=== PATIENT | male | born 1955 | race Caucasian/White ===

== ENCOUNTER 2018-01-05 08:33 | Inpatient (IN) | payer MEDICAID, OTHER ==
[~2018-01-05] VITALS: Ht 188 cm; Wt 101.7 kg
[2018-01-05 09:39] LABS: Basophils # (auto) 0 uL; Basophils % (auto) 0.6 % (0.0-2.0); Eosinophils # (auto) 0.1 uL; Lymphocytes # (auto) 0.8 uL; Monocytes # (auto) 0.5 uL
[2018-01-05 09:40] LABS: Eosinophils % (auto) 1.6 % (0.0-7.0); Hematocrit 31.3 % (41.0-53.0); Hemoglobin 10.4 g/dL (13.5-17.5); Lymphocytes % (auto) 14.2 % (10.0-50.0); Mean Corpuscular Hemoglobin 34.4 pg (28.0-32.0); Mean Corpuscular Hgb Conc. 33.4 g/dL (32.0-36.0); Mean Corpuscular Volume 103.2 fL (80.0-100.0); Monocytes % (auto) 8.9 % (0.0-12.0); Neutrophils # (auto) 4.3 uL; Neutrophils % (auto) 74.7 % (37.0-80.0); Platelet Count (auto) 112 10^3/uL (140-450); Red Blood Cells 3.03 10^6/uL (4.5-5.90); Red Cell Distribution Width 13.7 % (11.8-14.3); White Blood Cell 5.7 10^3/uL (4.4-10.8)
[2018-01-05 10:07] LABS: Albumin 3.7 g/dL (3.4-5.0); Calcium 8.6 mg/dL (8.5-10.1)
[2018-01-05 10:15] LABS: BUN/Creatinine Ratio 7.8; Bilirubin, Total 0.6 mg/dL (0.2-1.0); Total Protein 7.3 g/dL (6.4-8.2)
[2018-01-05 10:17] LABS: Potassium 7.3 mmol/L (3.5-5.1)
[2018-01-05] MEDS ORDERED: ALBUTEROL SULF 2.5 MG/0.5ML(0.5%) NEB SOLN NEB STA (10:35)
[2018-01-05] MEDS ORDERED: CALCIUM GLUC 4.65meq/50ml D5AE 50 ML IV ONE (10:45)
[2018-01-05] MEDS ORDERED: SODIUM POLYSTYRENE SULF 15GM/60ML SUSP PO ONE (10:45)
[2018-01-05] MEDS ORDERED: DEXTROSE (50%) 50ML SYRG IV ONE ×2 (10:45→15:30)
[2018-01-05] MEDS ORDERED: SODIUM BICARBONATE 8.4% INJ 50ML SYRINGE IV ONE (10:45)
[2018-01-05] MEDS ORDERED: FUROSEMIDE 20 MG/2 ML VIAL IV ONE (10:45)
[2018-01-05] MEDS ORDERED: InsuLIN REG 1unit/0.01ml Soln (100units/ml) IV ONE (10:45)
[2018-01-05] MEDS ORDERED: SODIUM CHL 0.9% 1000 ML BAG XX ONE (13:30)
[2018-01-05] MEDS ORDERED: DIAZEPAM 5 MG TAB PO PRN (13:30)
[2018-01-05] MEDS ORDERED: EPOETIN ALFA 10,000 UNIT/1 ML VIAL IV ONE (13:30)
[2018-01-05] MEDS ORDERED: MORPHINE SULFATE 8mg/ml INJ SDV IV PRN (13:45)
[2018-01-05] MEDS ORDERED: ACETAMINOPHEN 325 MG TAB PO PRN (13:45)
[2018-01-05] MEDS ORDERED: NITROGLYCERIN 0.4 MG SL TAB SL PRN (13:45)
[2018-01-05] MEDS ORDERED: TEMAZEPAM 15 MG CAP PO PRN (13:45)
[2018-01-05] MEDS ORDERED: CARVEDILOL 12.5 MG TAB PO ONE (14:00)
[2018-01-05] MEDS ORDERED: CLOPIDOGREL BISULFATE 75 MG TAB PO ONE (14:00)
[2018-01-05] MEDS: SODIUM CHLOR 0.9% PF (SALINE LOCK) 10ML VIAL/SYR IV SCH ×2 (14:00→22:00)
[2018-01-05 14:52] LABS: Calcium 8.7 mg/dL (8.5-10.1)
[2018-01-05 15:02] LABS: BUN/Creatinine Ratio 7.8
[2018-01-05 15:13] LABS: Potassium 7.5 mmol/L (3.5-5.1)
[2018-01-05] MEDS ORDERED: DEXTROSE 50% SYRINGE 50 ML IV ONE (15:20)
[2018-01-05] MEDS: SEVELAMER 800 MG TAB PO SCH (18:12)
[2018-01-05 18:43] VITALS: BP 105/68
[2018-01-05 21:12] VITALS: BP 99/63
[2018-01-05 22:00] VITALS: BP 99/69
[2018-01-05] MEDS ORDERED: oxyCODONE ER 10 MG TAB PO SCH (22:00)
[2018-01-05] MEDS ORDERED: FAMOTIDINE 20 MG TAB PO SCH (22:00)
[2018-01-06] MEDS: CARVEDILOL 12.5 MG TAB PO SCH ×3 (00:30→21:20)
[2018-01-06] MEDS: DOXAZOSIN MESYL 2 MG TAB PO SCH ×2 (00:30→21:22)
[2018-01-06] MEDS: PRAVASTATIN SODIUM 20 MG TAB PO SCH ×2 (00:43→21:23)
[2018-01-06] MEDS ORDERED: MORPHINE SULF 15mg ER tab PO ONE (01:15)
[2018-01-06] MEDS: ONDANSETRON HCL 4 MG/2 ML VIAL IV PRN (02:28)
[2018-01-06 05:11] VITALS: BP 90/58
[2018-01-06] MEDS: SODIUM CHLOR 0.9% PF (SALINE LOCK) 10ML VIAL/SYR IV SCH ×3 (05:51→21:20)
[2018-01-06 06:38] LABS: Basophils # (auto) 0 uL; Basophils % (auto) 0.6 % (0.0-2.0); Eosinophils # (auto) 0 uL; Lymphocytes # (auto) 0.8 uL; Monocytes # (auto) 0.5 uL; Neutrophils # (auto) 2.1 uL; Red Cell Distribution Width 13.6 % (11.8-14.3); White Blood Cell 3.4 10^3/uL (4.4-10.8)
[2018-01-06 06:42] LABS: Eosinophils % (auto) 0.7 % (0.0-7.0); Hemoglobin 9.3 g/dL (13.5-17.5); Lymphocytes % (auto) 22.9 % (10.0-50.0); Mean Corpuscular Hemoglobin 35.3 pg (28.0-32.0); Mean Corpuscular Hgb Conc. 34.4 g/dL (32.0-36.0); Mean Corpuscular Volume 102.6 fL (80.0-100.0); Monocytes % (auto) 15.3 % (0.0-12.0); Neutrophils % (auto) 60.5 % (37.0-80.0); Nucleated Red Blood Cells % 0.3 %; Platelet Count (auto) 90 10^3/uL (140-450); Red Blood Cells 2.64 10^6/uL (4.5-5.90)
[2018-01-06 06:58] LABS: Potassium 5.4 mmol/L (3.5-5.1)
[2018-01-06 07:12] LABS: Albumin 3.1 g/dL (3.4-5.0); BUN/Creatinine Ratio 6.1; Bilirubin, Total 0.9 mg/dL (0.2-1.0); Calcium 8.5 mg/dL (8.5-10.1); Total Protein 6.3 g/dL (6.4-8.2)
[2018-01-06] MEDS: SEVELAMER 800 MG TAB PO SCH ×3 (07:59→18:12)
[2018-01-06 09:00] VITALS: BP 107/67
[2018-01-06] MEDS: B-COMPLEX W/ C & FOLIC ACID(NEPHROVITE TAB) PO SCH (09:19)
[2018-01-06] MEDS: MULTIPLE VITAMIN TAB PO SCH (09:19)
[2018-01-06] MEDS: CLOPIDOGREL BISULFATE 75 MG TAB PO SCH (09:19)
[2018-01-06] MEDS: PANTOPRAZOLE 40 MG TAB PO SCH (09:20)
[2018-01-06] MEDS: MORPHINE SULF 15mg ER tab PO SCH ×2 (09:21→21:22)
[2018-01-06] MEDS: CINACALCET HYDROCHLORIDE 30 MG TAB PO SCH (09:28)
[2018-01-06] MEDS ORDERED: PATIENTS OWN MEDICATION PO SCH (10:00)
[2018-01-06] MEDS ORDERED: CLOPIDOGREL BISULFATE 75 MG TAB PO SCH (10:00)
[2018-01-06 13:09] VITALS: BP 95/61
[2018-01-06] MEDS ORDERED: SODIUM CHL 0.9% 1000 ML BAG XX ONE (13:45)
[2018-01-06 17:00] VITALS: BP 109/69
[2018-01-06] MEDS: BOOST PLUS 8 ounce PO SCH (18:13)
[2018-01-06 19:48] VITALS: BP 101/69
[2018-01-06 22:00] VITALS: BP 91/55
[2018-01-07] MEDS: ONDANSETRON HCL 4 MG/2 ML VIAL IV PRN ×3 (03:00→22:23)
[2018-01-07] MEDS: SODIUM CHLOR 0.9% PF (SALINE LOCK) 10ML VIAL/SYR IV SCH ×3 (05:23→22:43)
[2018-01-07 05:25] VITALS: BP 104/67
[2018-01-07 06:00] LABS: Basophils # (auto) 0 uL; Eosinophils # (auto) 0.1 uL; Eosinophils % (auto) 1.8 % (0.0-7.0); Hemoglobin 11.1 g/dL (13.5-17.5); Lymphocytes # (auto) 0.7 uL; Mean Corpuscular Volume 104.3 fL (80.0-100.0); Monocytes # (auto) 0.6 uL; Neutrophils # (auto) 3.2 uL
[2018-01-07 06:05] LABS: Basophils % (auto) 0.6 % (0.0-2.0); Hematocrit 33.3 % (41.0-53.0); Lymphocytes % (auto) 15.1 % (10.0-50.0); Mean Corpuscular Hemoglobin 34.7 pg (28.0-32.0); Mean Corpuscular Hgb Conc. 33.3 g/dL (32.0-36.0); Monocytes % (auto) 13.4 % (0.0-12.0); Neutrophils % (auto) 69.1 % (37.0-80.0); Nucleated Red Blood Cells % 0.1 %; Platelet Count (auto) 95 10^3/uL (140-450); White Blood Cell 4.7 10^3/uL (4.4-10.8)
[2018-01-07 06:23] LABS: Potassium 4.4 mmol/L (3.5-5.1)
[2018-01-07 06:35] LABS: BUN/Creatinine Ratio 4.2; Calcium 8.9 mg/dL (8.5-10.1)
[2018-01-07 08:00] VITALS: BP 111/57
[2018-01-07] MEDS: SEVELAMER 800 MG TAB PO SCH ×3 (08:17→18:31)
[2018-01-07 09:00] VITALS: BP 111/57
[2018-01-07] MEDS: PANTOPRAZOLE 40 MG TAB PO SCH (10:16)
[2018-01-07] MEDS: CLOPIDOGREL BISULFATE 75 MG TAB PO SCH (10:16)
[2018-01-07] MEDS: MULTIPLE VITAMIN TAB PO SCH (10:16)
[2018-01-07] MEDS: B-COMPLEX W/ C & FOLIC ACID(NEPHROVITE TAB) PO SCH (10:16)
[2018-01-07] MEDS: BOOST PLUS 8 ounce PO SCH ×3 (10:17→18:31)
[2018-01-07] MEDS: CARVEDILOL 12.5 MG TAB PO SCH ×2 (10:17→22:44)
[2018-01-07] MEDS: MORPHINE SULF 15mg ER tab PO SCH ×2 (10:18→22:44)
[2018-01-07] MEDS: CINACALCET HYDROCHLORIDE 30 MG TAB PO SCH (11:26)
[2018-01-07 13:00] VITALS: BP 117/73
[2018-01-07 14:17] LABS: Hepatitis A Ab IgM Negative
[2018-01-07 14:20] LABS: Hepatitis B Core IgM Positive; Hepatitis B Surface Antigen Negative (Negative)
[2018-01-07 14:23] LABS: Hepatitis C Antibody Negative (Negative)
[2018-01-07] MEDS ORDERED: MORP15TA PO (15:27)
[2018-01-07] MEDS ORDERED: CARV25TA PO (15:27)
[2018-01-07] MEDS ORDERED: CLOP75TA28 PO (15:27)
[2018-01-07] MEDS ORDERED: CINA30TA2 PO (15:27)
[2018-01-07] MEDS ORDERED: DOXA2TAB PO (15:32)
[2018-01-07] MEDS ORDERED: DIAZ-104 PO (15:32)
[2018-01-07] MEDS ORDERED: ACE3T PO (15:32)
[2018-01-07] MEDS ORDERED: PRAV20TA3 PO (15:32)
[2018-01-07] MEDS ORDERED: SEVE800T PO (15:32)
[2018-01-07 17:00] VITALS: BP 105/64
[2018-01-07 22:25] VITALS: BP 114/64
[2018-01-07] MEDS: DOXAZOSIN MESYL 2 MG TAB PO SCH (22:43)
[2018-01-07] MEDS: PRAVASTATIN SODIUM 20 MG TAB PO SCH (22:45)
[2018-01-08] MEDS: SODIUM CHLOR 0.9% PF (SALINE LOCK) 10ML VIAL/SYR IV SCH ×3 (05:48→22:33)
[2018-01-08 06:01] LABS: Basophils # (auto) 0 uL; Eosinophils # (auto) 0.2 uL; Hemoglobin 9.9 g/dL (13.5-17.5); Lymphocytes # (auto) 1.3 uL; Monocytes # (auto) 0.5 uL; Red Blood Cells 2.83 10^6/uL (4.5-5.90)
[2018-01-08 06:03] LABS: Basophils % (auto) 0.5 % (0.0-2.0); Eosinophils % (auto) 4.2 % (0.0-7.0); Hematocrit 29.5 % (41.0-53.0); Lymphocytes % (auto) 29.5 % (10.0-50.0); Mean Corpuscular Hemoglobin 34.8 pg (28.0-32.0); Mean Corpuscular Hgb Conc. 33.5 g/dL (32.0-36.0); Mean Corpuscular Volume 104.1 fL (80.0-100.0); Monocytes % (auto) 11.4 % (0.0-12.0); Neutrophils # (auto) 2.5 uL; Neutrophils % (auto) 54.4 % (37.0-80.0); Nucleated Red Blood Cells % 0.1 %; Platelet Count (auto) 95 10^3/uL (140-450); Red Cell Distribution Width 13.6 % (11.8-14.3); White Blood Cell 4.6 10^3/uL (4.4-10.8)
[2018-01-08 06:16] LABS: Calcium 8.5 mg/dL (8.5-10.1)
[2018-01-08 06:26] LABS: BUN/Creatinine Ratio 4.2
[2018-01-08] MEDS: ONDANSETRON HCL 4 MG/2 ML VIAL IV PRN (07:24)
[2018-01-08] MEDS: SEVELAMER 800 MG TAB PO SCH ×3 (08:00→18:40)
[2018-01-08] MEDS ORDERED: EPOETIN ALFA 10,000 UNIT/1 ML VIAL IV ONE (08:15)
[2018-01-08 09:00] VITALS: BP 120/59
[2018-01-08] MEDS: CARVEDILOL 12.5 MG TAB PO SCH ×2 (10:00→22:00)
[2018-01-08 11:55] VITALS: BP 98/67
[2018-01-08 13:00] VITALS: BP 98/67
[2018-01-08] MEDS: BOOST PLUS 8 ounce PO SCH ×3 (13:40→18:40)
[2018-01-08] MEDS: MULTIPLE VITAMIN TAB PO SCH (13:40)
[2018-01-08] MEDS: B-COMPLEX W/ C & FOLIC ACID(NEPHROVITE TAB) PO SCH (13:41)
[2018-01-08] MEDS: MORPHINE SULF 15mg ER tab PO SCH ×2 (13:42→22:34)
[2018-01-08] MEDS: CLOPIDOGREL BISULFATE 75 MG TAB PO SCH (13:42)
[2018-01-08] MEDS: CINACALCET HYDROCHLORIDE 30 MG TAB PO SCH (13:42)
[2018-01-08] MEDS: PANTOPRAZOLE 40 MG TAB PO SCH (14:40)
[2018-01-08 17:00] VITALS: BP 99/67
[2018-01-08 22:00] VITALS: BP 98/64
[2018-01-08] MEDS: DOXAZOSIN MESYL 2 MG TAB PO SCH (22:00)
[2018-01-08] MEDS: PRAVASTATIN SODIUM 20 MG TAB PO SCH (22:34)
[2018-01-09 05:00] VITALS: BP 103/68
[2018-01-09] MEDS: SODIUM CHLOR 0.9% PF (SALINE LOCK) 10ML VIAL/SYR IV SCH ×3 (06:06→22:42)
[2018-01-09] MEDS: BOOST PLUS 8 ounce PO SCH ×2 (08:17→13:38)
[2018-01-09] MEDS: ONDANSETRON HCL 4 MG/2 ML VIAL IV PRN ×3 (08:17→22:52)
[2018-01-09] MEDS: SEVELAMER 800 MG TAB PO SCH ×3 (08:17→18:02)
[2018-01-09 08:30] VITALS: BP 94/64
[2018-01-09] MEDS: MULTIPLE VITAMIN TAB PO SCH (09:49)
[2018-01-09] MEDS: MORPHINE SULF 15mg ER tab PO SCH ×2 (09:49→22:49)
[2018-01-09] MEDS: CARVEDILOL 12.5 MG TAB PO SCH (09:49)
[2018-01-09] MEDS: B-COMPLEX W/ C & FOLIC ACID(NEPHROVITE TAB) PO SCH (09:49)
[2018-01-09] MEDS: CLOPIDOGREL BISULFATE 75 MG TAB PO SCH (09:50)
[2018-01-09] MEDS: CINACALCET HYDROCHLORIDE 30 MG TAB PO SCH (09:50)
[2018-01-09] MEDS: PANTOPRAZOLE 40 MG TAB PO SCH (09:50)
[2018-01-09 11:06] LABS: Phosphorus 3.2 mg/dL (2.5-4.90); Uric Acid 3.5 mg/dL (3.5-7.2)
[2018-01-09 12:30] VITALS: BP 105/68
[2018-01-09 16:49] VITALS: BP 107/63
[2018-01-09 22:00] VITALS: BP 93/65
[2018-01-09] MEDS: CARVEDILOL 3.125 MG TAB PO SCH (22:43)
[2018-01-09] MEDS: PRAVASTATIN SODIUM 20 MG TAB PO SCH (22:44)
[2018-01-10] MEDS: SODIUM CHLOR 0.9% PF (SALINE LOCK) 10ML VIAL/SYR IV SCH ×3 (05:45→21:42)
[2018-01-10 06:29] VITALS: BP 112/70
[2018-01-10 07:30] LABS: Albumin 3.1 g/dL (3.4-5.0); BUN/Creatinine Ratio 4.2; Calcium 8.8 mg/dL (8.5-10.1); Potassium 4.6 mmol/L (3.5-5.1)
[2018-01-10] MEDS: SEVELAMER 800 MG TAB PO SCH ×3 (07:32→17:40)
[2018-01-10] MEDS: ONDANSETRON HCL 4 MG/2 ML VIAL IV PRN ×4 (07:32→21:43)
[2018-01-10 07:34] LABS: Bilirubin, Total 0.5 mg/dL (0.2-1.0); Total Protein 6.8 g/dL (6.4-8.2)
[2018-01-10 09:01] VITALS: BP 102/62
[2018-01-10] MEDS: CARVEDILOL 3.125 MG TAB PO SCH ×2 (09:54→21:42)
[2018-01-10] MEDS: MORPHINE SULF 15mg ER tab PO SCH ×2 (09:54→21:43)
[2018-01-10] MEDS: B-COMPLEX W/ C & FOLIC ACID(NEPHROVITE TAB) PO SCH ×2 (09:54→11:00)
[2018-01-10] MEDS: MULTIPLE VITAMIN TAB PO SCH (09:54)
[2018-01-10] MEDS: PANTOPRAZOLE 40 MG TAB PO SCH (09:55)
[2018-01-10] MEDS: CINACALCET HYDROCHLORIDE 30 MG TAB PO SCH (09:55)
[2018-01-10] MEDS: CLOPIDOGREL BISULFATE 75 MG TAB PO SCH (09:55)
[2018-01-10] MEDS ORDERED: SODIUM CHL 0.9% 1000 ML BAG XX ONE (11:00)
[2018-01-10] MEDS ORDERED: EPOETIN ALFA 10,000 UNIT/1 ML VIAL IV ONE (11:00)
[2018-01-10 12:30] VITALS: BP 92/62
[2018-01-10 17:17] VITALS: BP 109/71
[2018-01-10 21:33] VITALS: BP 99/68
[2018-01-10] MEDS: PRAVASTATIN SODIUM 20 MG TAB PO SCH (21:43)
[2018-01-11] MEDS: SODIUM CHLOR 0.9% PF (SALINE LOCK) 10ML VIAL/SYR IV SCH ×3 (05:27→22:24)
[2018-01-11 05:39] VITALS: BP 105/65
[2018-01-11] MEDS: SEVELAMER 800 MG TAB PO SCH ×3 (08:22→18:32)
[2018-01-11] MEDS: ONDANSETRON HCL 4 MG/2 ML VIAL IV PRN ×2 (08:22→22:25)
[2018-01-11 08:30] VITALS: BP 104/81
[2018-01-11] MEDS: MORPHINE SULF 15mg ER tab PO SCH ×2 (10:11→22:25)
[2018-01-11 13:00] VITALS: BP 109/73
[2018-01-11] MEDS: CLOPIDOGREL BISULFATE 75 MG TAB PO SCH (15:28)
[2018-01-11] MEDS: B-COMPLEX W/ C & FOLIC ACID(NEPHROVITE TAB) PO SCH (15:28)
[2018-01-11] MEDS: PANTOPRAZOLE 40 MG TAB PO SCH (15:28)
[2018-01-11] MEDS: MULTIPLE VITAMIN TAB PO SCH (16:02)
[2018-01-11] MEDS: CINACALCET HYDROCHLORIDE 30 MG TAB PO SCH (16:02)
[2018-01-11 16:45] VITALS: BP 106/76
[2018-01-11 22:00] VITALS: BP 101/69
[2018-01-11] MEDS ORDERED: CARVEDILOL 3.125 MG TAB PO SCH (22:00)
[2018-01-11] MEDS: PRAVASTATIN SODIUM 20 MG TAB PO SCH (22:25)
[2018-01-12] MEDS: SODIUM CHLOR 0.9% PF (SALINE LOCK) 10ML VIAL/SYR IV SCH ×3 (04:56→22:20)
[2018-01-12 05:00] VITALS: BP 108/63
[2018-01-12] MEDS: ONDANSETRON HCL 4 MG/2 ML VIAL IV PRN ×4 (06:31→21:15)
[2018-01-12 07:11] LABS: Basophils # (auto) 0 uL; Eosinophils # (auto) 0.2 uL; Lymphocytes # (auto) 1.4 uL; Monocytes # (auto) 0.7 uL; Nucleated Red Blood Cells % 0.1 %; Red Cell Distribution Width 13.7 % (11.8-14.3); White Blood Cell 6.4 10^3/uL (4.4-10.8)
[2018-01-12 07:14] LABS: Basophils % (auto) 0.6 % (0.0-2.0); Eosinophils % (auto) 3.3 % (0.0-7.0); Hematocrit 30.3 % (41.0-53.0); Hemoglobin 10.1 g/dL (13.5-17.5); Lymphocytes % (auto) 21.9 % (10.0-50.0); Mean Corpuscular Hemoglobin 34.4 pg (28.0-32.0); Mean Corpuscular Hgb Conc. 33.4 g/dL (32.0-36.0); Mean Corpuscular Volume 102.9 fL (80.0-100.0); Monocytes % (auto) 10.6 % (0.0-12.0); Neutrophils # (auto) 4.1 uL; Neutrophils % (auto) 63.6 % (37.0-80.0); Platelet Count (auto) 135 10^3/uL (140-450); Red Blood Cells 2.95 10^6/uL (4.5-5.90)
[2018-01-12 07:29] LABS: Calcium 8.8 mg/dL (8.5-10.1); Potassium 5.2 mmol/L (3.5-5.1)
[2018-01-12 07:31] LABS: BUN/Creatinine Ratio 4.8
[2018-01-12] MEDS: SEVELAMER 800 MG TAB PO SCH ×3 (08:00→18:03)
[2018-01-12 09:12] VITALS: BP 95/62
[2018-01-12] MEDS: CLOPIDOGREL BISULFATE 75 MG TAB PO SCH (10:00)
[2018-01-12] MEDS: B-COMPLEX W/ C & FOLIC ACID(NEPHROVITE TAB) PO SCH (10:00)
[2018-01-12] MEDS: MULTIPLE VITAMIN TAB PO SCH (10:00)
[2018-01-12] MEDS ORDERED: SODIUM POLYSTYRENE SULF 15GM/60ML SUSP PO ONE (10:00)
[2018-01-12] MEDS: MORPHINE SULF 15mg ER tab PO SCH ×2 (10:00→22:18)
[2018-01-12] MEDS: PANTOPRAZOLE 40 MG TAB PO SCH (10:00)
[2018-01-12] MEDS: CINACALCET HYDROCHLORIDE 30 MG TAB PO SCH (10:00)
[2018-01-12 13:00] VITALS: BP 96/62
[2018-01-12 17:00] VITALS: BP 113/62
[2018-01-12 22:00] VITALS: BP 126/68
[2018-01-12] MEDS: CARVEDILOL 3.125 MG TAB PO SCH (22:00)
[2018-01-12] MEDS: PRAVASTATIN SODIUM 20 MG TAB PO SCH (22:17)
[2018-01-13 05:00] VITALS: BP 121/71
[2018-01-13] MEDS: SODIUM CHLOR 0.9% PF (SALINE LOCK) 10ML VIAL/SYR IV SCH ×3 (05:57→22:05)
[2018-01-13] MEDS: ONDANSETRON HCL 4 MG/2 ML VIAL IV PRN ×4 (06:18→22:10)
[2018-01-13 06:35] LABS: Basophils # (auto) 0 uL; Eosinophils # (auto) 0.2 uL; Hemoglobin 9.3 g/dL (13.5-17.5); Monocytes # (auto) 0.8 uL
[2018-01-13 06:39] LABS: Basophils % (auto) 0.8 % (0.0-2.0); Eosinophils % (auto) 3.5 % (0.0-7.0); Hematocrit 26.8 % (41.0-53.0); Lymphocytes # (auto) 1.1 uL; Lymphocytes % (auto) 19.7 % (10.0-50.0); Mean Corpuscular Hemoglobin 35.2 pg (28.0-32.0); Mean Corpuscular Hgb Conc. 34.6 g/dL (32.0-36.0); Mean Corpuscular Volume 101.9 fL (80.0-100.0); Monocytes % (auto) 14.1 % (0.0-12.0); Neutrophils # (auto) 3.6 uL; Neutrophils % (auto) 61.9 % (37.0-80.0); Nucleated Red Blood Cells % 0.3 %; Platelet Count (auto) 102 10^3/uL (140-450); Red Blood Cells 2.63 10^6/uL (4.5-5.90); Red Cell Distribution Width 13.3 % (11.8-14.3); White Blood Cell 5.8 10^3/uL (4.4-10.8)
[2018-01-13 06:53] LABS: BUN/Creatinine Ratio 4.9; Calcium 8.4 mg/dL (8.5-10.1); Potassium 4.3 mmol/L (3.5-5.1)
[2018-01-13] MEDS: SEVELAMER 800 MG TAB PO SCH ×3 (07:59→18:08)
[2018-01-13 08:35] VITALS: BP 121/72
[2018-01-13] MEDS: CARVEDILOL 3.125 MG TAB PO SCH ×2 (10:00→22:00)
[2018-01-13] MEDS ORDERED: EPOETIN ALFA 4,000 UNIT/ML VL IV ONE (10:00)
[2018-01-13] MEDS ORDERED: SODIUM CHL 0.9% 1000 ML BAG XX ONE (10:00)
[2018-01-13] MEDS: B-COMPLEX W/ C & FOLIC ACID(NEPHROVITE TAB) PO SCH (10:22)
[2018-01-13] MEDS: CLOPIDOGREL BISULFATE 75 MG TAB PO SCH (10:22)
[2018-01-13] MEDS: MULTIPLE VITAMIN TAB PO SCH (10:22)
[2018-01-13] MEDS: PANTOPRAZOLE 40 MG TAB PO SCH (10:22)
[2018-01-13] MEDS: MORPHINE SULF 15mg ER tab PO SCH ×2 (10:22→22:04)
[2018-01-13] MEDS: CINACALCET HYDROCHLORIDE 30 MG TAB PO SCH (10:32)
[2018-01-13 11:27] VITALS: BP 108/73
[2018-01-13 17:07] VITALS: BP 105/62
[2018-01-13 22:00] VITALS: BP 102/62
[2018-01-13] MEDS: PRAVASTATIN SODIUM 20 MG TAB PO SCH (22:04)
[2018-01-14 05:00] VITALS: BP 141/74
[2018-01-14] MEDS: ONDANSETRON HCL 4 MG/2 ML VIAL IV PRN ×2 (05:33→22:26)
[2018-01-14] MEDS: SODIUM CHLOR 0.9% PF (SALINE LOCK) 10ML VIAL/SYR IV SCH ×3 (05:33→22:00)
[2018-01-14 07:09] LABS: Basophils # (auto) 0 uL; Eosinophils # (auto) 0.2 uL; Hemoglobin 9.6 g/dL (13.5-17.5); Lymphocytes # (auto) 1.2 uL; Monocytes # (auto) 0.6 uL; Monocytes % (auto) 11.7 % (0.0-12.0); Neutrophils # (auto) 3.4 uL; Neutrophils % (auto) 63.3 % (37.0-80.0); Platelet Count (auto) 107 10^3/uL (140-450); White Blood Cell 5.4 10^3/uL (4.4-10.8)
[2018-01-14 07:12] LABS: Basophils % (auto) 0.6 % (0.0-2.0); Eosinophils % (auto) 2.9 % (0.0-7.0); Hematocrit 27.8 % (41.0-53.0); Lymphocytes % (auto) 21.5 % (10.0-50.0); Mean Corpuscular Hemoglobin 34.9 pg (28.0-32.0); Mean Corpuscular Hgb Conc. 34.4 g/dL (32.0-36.0); Mean Corpuscular Volume 101.4 fL (80.0-100.0); Red Blood Cells 2.74 10^6/uL (4.5-5.90); Red Cell Distribution Width 13.8 % (11.8-14.3)
[2018-01-14 07:33] LABS: Calcium 8.6 mg/dL (8.5-10.1); Potassium 4.7 mmol/L (3.5-5.1)
[2018-01-14 07:36] LABS: BUN/Creatinine Ratio 4.6
[2018-01-14] MEDS: SEVELAMER 800 MG TAB PO SCH ×3 (07:49→18:25)
[2018-01-14 09:00] VITALS: BP 93/64
[2018-01-14] MEDS: CARVEDILOL 3.125 MG TAB PO SCH ×2 (10:00→22:29)
[2018-01-14] MEDS: MULTIPLE VITAMIN TAB PO SCH (10:18)
[2018-01-14] MEDS: CLOPIDOGREL BISULFATE 75 MG TAB PO SCH (10:18)
[2018-01-14] MEDS: MORPHINE SULF 15mg ER tab PO SCH ×2 (10:18→22:28)
[2018-01-14] MEDS: CINACALCET HYDROCHLORIDE 30 MG TAB PO SCH (10:18)
[2018-01-14] MEDS: PANTOPRAZOLE 40 MG TAB PO SCH (10:18)
[2018-01-14] MEDS: B-COMPLEX W/ C & FOLIC ACID(NEPHROVITE TAB) PO SCH (10:19)
[2018-01-14 13:00] VITALS: BP 119/59
[2018-01-14] MEDS ORDERED: SODIUM CHL 0.9% 1000 ML BAG XX ONE (15:00)
[2018-01-14] MEDS ORDERED: EPOETIN ALFA 10,000 UNIT/1 ML VIAL IV ONE (15:00)
[2018-01-14 17:00] VITALS: BP 129/76
[2018-01-14 22:00] VITALS: BP 120/76
[2018-01-14] MEDS: PRAVASTATIN SODIUM 20 MG TAB PO SCH (22:27)
[2018-01-15 05:00] VITALS: BP 128/70
[2018-01-15] MEDS: SODIUM CHLOR 0.9% PF (SALINE LOCK) 10ML VIAL/SYR IV SCH ×3 (06:00→22:17)
[2018-01-15] MEDS: ONDANSETRON HCL 4 MG/2 ML VIAL IV PRN ×3 (06:56→19:15)
[2018-01-15] MEDS: SEVELAMER 800 MG TAB PO SCH ×3 (08:05→17:51)
[2018-01-15 09:00] VITALS: BP 119/94
[2018-01-15] MEDS: CARVEDILOL 3.125 MG TAB PO SCH ×2 (10:00→22:16)
[2018-01-15] MEDS: CLOPIDOGREL BISULFATE 75 MG TAB PO SCH (10:01)
[2018-01-15] MEDS: MORPHINE SULF 15mg ER tab PO SCH ×2 (10:01→22:15)
[2018-01-15] MEDS: PANTOPRAZOLE 40 MG TAB PO SCH (10:01)
[2018-01-15] MEDS: MULTIPLE VITAMIN TAB PO SCH (10:01)
[2018-01-15] MEDS: B-COMPLEX W/ C & FOLIC ACID(NEPHROVITE TAB) PO SCH (10:01)
[2018-01-15] MEDS: CINACALCET HYDROCHLORIDE 30 MG TAB PO SCH (10:04)
[2018-01-15 17:00] VITALS: BP 131/82
[2018-01-15] MEDS: ERGOCALCIFEROL 50,000 UNIT(1.25MG) CAP PO SCH (17:12)
[2018-01-15 17:22] VITALS: BP 131/76
[2018-01-15] MEDS: HYDROcodone-ACET 5/325MG TAB PO PRN (19:48)
[2018-01-15 22:00] VITALS: BP 122/75
[2018-01-15] MEDS: PRAVASTATIN SODIUM 20 MG TAB PO SCH (22:15)
[2018-01-16 05:00] VITALS: BP 113/69
[2018-01-16] MEDS: SODIUM CHLOR 0.9% PF (SALINE LOCK) 10ML VIAL/SYR IV SCH ×3 (06:29→21:58)
[2018-01-16] MEDS: traMADol HCL 50 MG TAB PO PRN ×2 (07:27→23:26)
[2018-01-16] MEDS: PROMETHAZINE HCL 25 MG/ML 1ML IV PRN ×2 (07:28→18:23)
[2018-01-16] MEDS: SEVELAMER 800 MG TAB PO SCH ×3 (08:09→18:17)
[2018-01-16 09:00] VITALS: BP 114/63
[2018-01-16] MEDS: B-COMPLEX W/ C & FOLIC ACID(NEPHROVITE TAB) PO SCH (09:21)
[2018-01-16] MEDS: PANTOPRAZOLE 40 MG TAB PO SCH (09:22)
[2018-01-16] MEDS: MULTIPLE VITAMIN TAB PO SCH (09:22)
[2018-01-16] MEDS: MORPHINE SULF 15mg ER tab PO SCH ×2 (09:22→21:56)
[2018-01-16] MEDS: CLOPIDOGREL BISULFATE 75 MG TAB PO SCH (09:24)
[2018-01-16] MEDS: CARVEDILOL 3.125 MG TAB PO SCH ×2 (09:25→21:57)
[2018-01-16] MEDS: CINACALCET HYDROCHLORIDE 30 MG TAB PO SCH (09:27)
[2018-01-16 17:00] VITALS: BP 115/68
[2018-01-16] MEDS: PRAVASTATIN SODIUM 20 MG TAB PO SCH (21:56)
[2018-01-16 22:41] VITALS: BP 110/66
[2018-01-17 05:18] VITALS: BP 103/68
[2018-01-17] MEDS: SODIUM CHLOR 0.9% PF (SALINE LOCK) 10ML VIAL/SYR IV SCH ×3 (06:00→22:13)
[2018-01-17 06:15] LABS: Basophils # (auto) 0 uL; Eosinophils # (auto) 0.2 uL; Hemoglobin 9.4 g/dL (13.5-17.5); Lymphocytes # (auto) 1.4 uL; Monocytes # (auto) 0.7 uL; Neutrophils # (auto) 3.1 uL; Platelet Count (auto) 90 10^3/uL (140-450); White Blood Cell 5.4 10^3/uL (4.4-10.8)
[2018-01-17 06:16] LABS: Basophils % (auto) 0.9 % (0.0-2.0); Eosinophils % (auto) 3.4 % (0.0-7.0); Hematocrit 28.3 % (41.0-53.0); Lymphocytes % (auto) 25.7 % (10.0-50.0); Mean Corpuscular Hemoglobin 33.8 pg (28.0-32.0); Mean Corpuscular Hgb Conc. 33.2 g/dL (32.0-36.0); Mean Corpuscular Volume 101.7 fL (80.0-100.0); Monocytes % (auto) 12.6 % (0.0-12.0); Neutrophils % (auto) 57.4 % (37.0-80.0); Red Blood Cells 2.78 10^6/uL (4.5-5.90); Red Cell Distribution Width 13.6 % (11.8-14.3)
[2018-01-17] MEDS: PROMETHAZINE HCL 25 MG/ML 1ML IV PRN ×3 (06:19→23:05)
[2018-01-17] MEDS: traMADol HCL 50 MG TAB PO PRN ×2 (06:20→22:11)
[2018-01-17 06:21] LABS: BUN/Creatinine Ratio 5.5; Calcium 8.6 mg/dL (8.5-10.1); Potassium 5.2 mmol/L (3.5-5.1)
[2018-01-17] MEDS: SEVELAMER 800 MG TAB PO SCH ×3 (07:47→17:11)
[2018-01-17 09:00] VITALS: BP 109/70
[2018-01-17] MEDS: CINACALCET HYDROCHLORIDE 30 MG TAB PO SCH (09:04)
[2018-01-17] MEDS: B-COMPLEX W/ C & FOLIC ACID(NEPHROVITE TAB) PO SCH (09:04)
[2018-01-17] MEDS: MULTIPLE VITAMIN TAB PO SCH (09:04)
[2018-01-17] MEDS: PANTOPRAZOLE 40 MG TAB PO SCH (09:05)
[2018-01-17] MEDS: MORPHINE SULF 15mg ER tab PO SCH ×2 (09:05→22:12)
[2018-01-17] MEDS: CARVEDILOL 3.125 MG TAB PO SCH ×2 (09:06→22:12)
[2018-01-17] MEDS: CLOPIDOGREL BISULFATE 75 MG TAB PO SCH (09:07)
[2018-01-17 17:00] VITALS: BP 136/79
[2018-01-17] MEDS: HYDROcodone-ACET 5/325MG TAB PO PRN (17:21)
[2018-01-17] MEDS: PRAVASTATIN SODIUM 20 MG TAB PO SCH (22:11)
[2018-01-17 22:24] VITALS: BP 127/76
[2018-01-18] VITALS (7 sets, daily range): BP systolic 102–121; BP diastolic 64–70
[2018-01-18] MEDS: traMADol HCL 50 MG TAB PO PRN ×2 (02:56→23:52)
[2018-01-18] MEDS: PROMETHAZINE HCL 25 MG/ML 1ML IV PRN ×3 (05:35→23:53)
[2018-01-18] MEDS: SODIUM CHLOR 0.9% PF (SALINE LOCK) 10ML VIAL/SYR IV SCH ×3 (05:36→23:51)
[2018-01-18 06:39] LABS: Basophils # (auto) 0 uL; Basophils % (auto) 0.8 % (0.0-2.0); Eosinophils # (auto) 0.2 uL; Lymphocytes # (auto) 1.3 uL; Neutrophils # (auto) 3.6 uL
[2018-01-18 06:41] LABS: Eosinophils % (auto) 3.5 % (0.0-7.0); Hematocrit 27.6 % (41.0-53.0); Hemoglobin 9.4 g/dL (13.5-17.5); Lymphocytes % (auto) 22.1 % (10.0-50.0); Mean Corpuscular Hemoglobin 34.5 pg (28.0-32.0); Mean Corpuscular Hgb Conc. 34.2 g/dL (32.0-36.0); Mean Corpuscular Volume 100.9 fL (80.0-100.0); Monocytes # (auto) 0.7 uL; Monocytes % (auto) 11.4 % (0.0-12.0); Neutrophils % (auto) 62.2 % (37.0-80.0); Platelet Count (auto) 91 10^3/uL (140-450); Red Blood Cells 2.73 10^6/uL (4.5-5.90); Red Cell Distribution Width 13.5 % (11.8-14.3); White Blood Cell 5.8 10^3/uL (4.4-10.8)
[2018-01-18 07:02] LABS: Calcium 8.6 mg/dL (8.5-10.1); Potassium 5.1 mmol/L (3.5-5.1)
[2018-01-18] MEDS: B-COMPLEX W/ C & FOLIC ACID(NEPHROVITE TAB) PO SCH (09:32)
[2018-01-18] MEDS: PANTOPRAZOLE 40 MG TAB PO SCH (09:32)
[2018-01-18] MEDS: CLOPIDOGREL BISULFATE 75 MG TAB PO SCH (09:32)
[2018-01-18] MEDS: SEVELAMER 800 MG TAB PO SCH ×4 (09:32→17:50)
[2018-01-18] MEDS: MULTIPLE VITAMIN TAB PO SCH (09:32)
[2018-01-18] MEDS: CINACALCET HYDROCHLORIDE 30 MG TAB PO SCH (09:32)
[2018-01-18] MEDS: MORPHINE SULF 15mg ER tab PO SCH ×2 (09:32→22:13)
[2018-01-18] MEDS: CARVEDILOL 3.125 MG TAB PO SCH ×2 (09:33→22:06)
[2018-01-18] MEDS ORDERED: EPOETIN ALFA 10,000 UNIT/1 ML VIAL IV ONE (10:45)
[2018-01-18] MEDS: DOCUSATE SOD 100 MG CAP PO PRN (22:05)
[2018-01-18] MEDS: PRAVASTATIN SODIUM 20 MG TAB PO SCH (22:07)
[2018-01-19 05:00] VITALS: BP 117/68
[2018-01-19 07:00] LABS: Basophils # (auto) 0 uL; Basophils % (auto) 0.9 % (0.0-2.0); Eosinophils # (auto) 0.1 uL; Eosinophils % (auto) 3.1 % (0.0-7.0); Hematocrit 28.1 % (41.0-53.0); Hemoglobin 9.5 g/dL (13.5-17.5); Lymphocytes # (auto) 1.2 uL; Lymphocytes % (auto) 24.6 % (10.0-50.0); Mean Corpuscular Hemoglobin 34.5 pg (28.0-32.0); Mean Corpuscular Volume 101.5 fL (80.0-100.0); Monocytes # (auto) 0.6 uL; Monocytes % (auto) 12.6 % (0.0-12.0); Neutrophils # (auto) 2.7 uL; Neutrophils % (auto) 58.8 % (37.0-80.0); Nucleated Red Blood Cells % 0.1 %; Platelet Count (auto) 94 10^3/uL (140-450); Red Blood Cells 2.77 10^6/uL (4.5-5.90); Red Cell Distribution Width 13.4 % (11.8-14.3); White Blood Cell 4.7 10^3/uL (4.4-10.8)
[2018-01-19 07:17] LABS: Potassium 4.8 mmol/L (3.5-5.1)
[2018-01-19 07:23] LABS: BUN/Creatinine Ratio 6.2; Calcium 8.4 mg/dL (8.5-10.1)
[2018-01-19] MEDS: SODIUM CHLOR 0.9% PF (SALINE LOCK) 10ML VIAL/SYR IV SCH ×3 (07:26→21:36)
[2018-01-19] MEDS: traMADol HCL 50 MG TAB PO PRN ×2 (07:30→16:03)
[2018-01-19] MEDS: PROMETHAZINE HCL 25 MG/ML 1ML IV PRN ×3 (07:31→22:05)
[2018-01-19 08:00] VITALS: BP 113/67
[2018-01-19] MEDS: SEVELAMER 800 MG TAB PO SCH ×3 (08:36→18:33)
[2018-01-19] MEDS: MORPHINE SULF 15mg ER tab PO SCH ×2 (09:15→21:35)
[2018-01-19] MEDS: MULTIPLE VITAMIN TAB PO SCH (09:15)
[2018-01-19] MEDS: B-COMPLEX W/ C & FOLIC ACID(NEPHROVITE TAB) PO SCH (09:15)
[2018-01-19] MEDS: PANTOPRAZOLE 40 MG TAB PO SCH (09:15)
[2018-01-19] MEDS: CLOPIDOGREL BISULFATE 75 MG TAB PO SCH (09:15)
[2018-01-19] MEDS: CARVEDILOL 3.125 MG TAB PO SCH ×2 (09:15→21:36)
[2018-01-19] MEDS: CINACALCET HYDROCHLORIDE 30 MG TAB PO SCH (09:20)
[2018-01-19 09:42] VITALS: BP 113/67
[2018-01-19 13:46] VITALS: BP 123/70
[2018-01-19 17:22] VITALS: BP 120/70
[2018-01-19 21:30] VITALS: BP 111/68
[2018-01-19] MEDS: PRAVASTATIN SODIUM 20 MG TAB PO SCH (21:35)
[2018-01-20 05:00] VITALS: BP 112/72
[2018-01-20] MEDS: SODIUM CHLOR 0.9% PF (SALINE LOCK) 10ML VIAL/SYR IV SCH ×3 (06:43→21:52)
[2018-01-20 06:54] LABS: Basophils # (auto) 0 uL; Hemoglobin 9.4 g/dL (13.5-17.5); Lymphocytes # (auto) 1.3 uL; Mean Corpuscular Hemoglobin 34.5 pg (28.0-32.0); Monocytes # (auto) 0.5 uL; Nucleated Red Blood Cells % 0.1 %
[2018-01-20 07:08] LABS: Basophils % (auto) 0.8 % (0.0-2.0); Eosinophils # (auto) 0.2 uL; Hematocrit 27.8 % (41.0-53.0); Lymphocytes % (auto) 24.9 % (10.0-50.0); Mean Corpuscular Hgb Conc. 33.9 g/dL (32.0-36.0); Mean Corpuscular Volume 101.7 fL (80.0-100.0); Monocytes % (auto) 10.5 % (0.0-12.0); Neutrophils # (auto) 3.2 uL; Neutrophils % (auto) 60.8 % (37.0-80.0); Platelet Count (auto) 92 10^3/uL (140-450); Red Blood Cells 2.74 10^6/uL (4.5-5.90); Red Cell Distribution Width 13.8 % (11.8-14.3); White Blood Cell 5.2 10^3/uL (4.4-10.8)
[2018-01-20 07:28] LABS: BUN/Creatinine Ratio 6.5; Calcium 8.6 mg/dL (8.5-10.1); Potassium 5.3 mmol/L (3.5-5.1)
[2018-01-20] MEDS: PROMETHAZINE HCL 25 MG/ML 1ML IV PRN ×2 (08:28→18:58)
[2018-01-20] MEDS: SEVELAMER 800 MG TAB PO SCH ×3 (08:28→18:58)
[2018-01-20] MEDS: HYDROcodone-ACET 5/325MG TAB PO PRN (08:28)
[2018-01-20 09:22] VITALS: BP 103/74
[2018-01-20] MEDS ORDERED: SODIUM POLYSTYRENE SULF 15GM/60ML SUSP PO ONE (09:30)
[2018-01-20] MEDS: B-COMPLEX W/ C & FOLIC ACID(NEPHROVITE TAB) PO SCH (10:00)
[2018-01-20] MEDS: MULTIPLE VITAMIN TAB PO SCH (10:01)
[2018-01-20] MEDS: PANTOPRAZOLE 40 MG TAB PO SCH (10:01)
[2018-01-20] MEDS: CLOPIDOGREL BISULFATE 75 MG TAB PO SCH (10:01)
[2018-01-20] MEDS: CARVEDILOL 3.125 MG TAB PO SCH ×2 (10:01→21:53)
[2018-01-20] MEDS: MORPHINE SULF 15mg ER tab PO SCH ×2 (10:02→21:53)
[2018-01-20] MEDS: CINACALCET HYDROCHLORIDE 30 MG TAB PO SCH (10:14)
[2018-01-20 12:30] VITALS: BP 105/66
[2018-01-20 16:25] VITALS: BP 127/81
[2018-01-20] MEDS: traMADol HCL 50 MG TAB PO PRN (18:58)
[2018-01-20] MEDS: PRAVASTATIN SODIUM 20 MG TAB PO SCH (21:53)
[2018-01-20 22:00] VITALS: BP 113/64
[2018-01-21 05:00] VITALS: BP 117/66
[2018-01-21] MEDS: SODIUM CHLOR 0.9% PF (SALINE LOCK) 10ML VIAL/SYR IV SCH ×3 (05:33→21:57)
[2018-01-21 06:52] LABS: Eosinophils # (auto) 0.1 uL; Lymphocytes # (auto) 0.8 uL; Monocytes # (auto) 0.5 uL; Platelet Count (auto) 96 10^3/uL (140-450); White Blood Cell 4.7 10^3/uL (4.4-10.8)
[2018-01-21 07:04] LABS: Basophils # (auto) 0.1 uL; Basophils % (auto) 1.1 % (0.0-2.0); Hematocrit 26.7 % (41.0-53.0); Hemoglobin 9.2 g/dL (13.5-17.5); Lymphocytes % (auto) 16.2 % (10.0-50.0); Mean Corpuscular Hemoglobin 34.6 pg (28.0-32.0); Mean Corpuscular Hgb Conc. 34.4 g/dL (32.0-36.0); Mean Corpuscular Volume 100.8 fL (80.0-100.0); Monocytes % (auto) 9.8 % (0.0-12.0); Neutrophils # (auto) 3.4 uL; Neutrophils % (auto) 70.9 % (37.0-80.0); Nucleated Red Blood Cells % 0.1 %; Red Blood Cells 2.65 10^6/uL (4.5-5.90); Red Cell Distribution Width 13.6 % (11.8-14.3)
[2018-01-21 07:09] LABS: Calcium 8.3 mg/dL (8.5-10.1); Potassium 4.6 mmol/L (3.5-5.1)
[2018-01-21 07:11] LABS: BUN/Creatinine Ratio 5.9
[2018-01-21] MEDS: SEVELAMER 800 MG TAB PO SCH ×3 (07:53→17:50)
[2018-01-21 08:41] VITALS: BP 111/62
[2018-01-21] MEDS: PANTOPRAZOLE 40 MG TAB PO SCH (09:59)
[2018-01-21] MEDS: CLOPIDOGREL BISULFATE 75 MG TAB PO SCH (09:59)
[2018-01-21] MEDS: B-COMPLEX W/ C & FOLIC ACID(NEPHROVITE TAB) PO SCH (10:00)
[2018-01-21] MEDS: MULTIPLE VITAMIN TAB PO SCH (10:00)
[2018-01-21] MEDS: MORPHINE SULF 15mg ER tab PO SCH (10:00)
[2018-01-21] MEDS: DOCUSATE SOD 100 MG CAP PO PRN (10:00)
[2018-01-21] MEDS: CARVEDILOL 3.125 MG TAB PO SCH ×2 (10:01→21:58)
[2018-01-21] MEDS: PROMETHAZINE HCL 25 MG/ML 1ML IV PRN ×2 (10:02→18:15)
[2018-01-21] MEDS: CINACALCET HYDROCHLORIDE 30 MG TAB PO SCH (10:13)
[2018-01-21 14:00] VITALS: BP 128/67
[2018-01-21 17:00] VITALS: BP 118/69
[2018-01-21] MEDS: PRAVASTATIN SODIUM 20 MG TAB PO SCH (21:58)
[2018-01-21 22:00] VITALS: BP 123/77
[2018-01-21] MEDS: traMADol HCL 50 MG TAB PO PRN (22:54)
[2018-01-22] MEDS ORDERED: MORPHINE SULF 15mg ER tab PO ONE (00:15)
[2018-01-22 05:00] VITALS: BP 120/79
[2018-01-22] MEDS: SODIUM CHLOR 0.9% PF (SALINE LOCK) 10ML VIAL/SYR IV SCH (05:44)
[2018-01-22] MEDS ORDERED: SODIUM CHL 0.9% 1000 ML BAG XX ONE (08:00)
[2018-01-22] MEDS ORDERED: EPOETIN ALFA 10,000 UNIT/1 ML VIAL IV ONE (08:00)
[2018-01-22] MEDS: SEVELAMER 800 MG TAB PO SCH ×2 (08:14→12:04)
[2018-01-22] MEDS: traMADol HCL 50 MG TAB PO PRN (08:14)
[2018-01-22] MEDS: CLOPIDOGREL BISULFATE 75 MG TAB PO SCH (08:15)
[2018-01-22] MEDS: CARVEDILOL 3.125 MG TAB PO SCH (08:15)
[2018-01-22] MEDS: PANTOPRAZOLE 40 MG TAB PO SCH (08:16)
[2018-01-22] MEDS: B-COMPLEX W/ C & FOLIC ACID(NEPHROVITE TAB) PO SCH (08:16)
[2018-01-22] MEDS: MULTIPLE VITAMIN TAB PO SCH (08:16)
[2018-01-22] MEDS: CINACALCET HYDROCHLORIDE 30 MG TAB PO SCH (08:16)
[2018-01-22 09:00] VITALS: BP 130/74
[2018-01-22] MEDS: PROMETHAZINE HCL 25 MG/ML 1ML IV PRN (09:39)
[2018-01-22 11:07] VITALS: BP 130/74
[2018-01-22] MEDS: ERGOCALCIFEROL 50,000 UNIT(1.25MG) CAP PO SCH (12:04)
== END 2018-01-22 12:13 | disposition home or self-care (01) | DRG 291 ==
LOC: ER 08:33 → TELE 08:34 → TELE-WESTW 20:29
PROVIDERS: ADMIT Internal Medicine; ATTEND Internal Medicine Pulmonary Disease
PROC: 5A1D70Z Performance of Urinary Filtration, Intermittent, Less than 6 Hours Per Day (ICD-10-PCS; principal; 2018-01-05)
PROC: 5A1D70Z Performance of Urinary Filtration, Intermittent, Less than 6 Hours Per Day (ICD-10-PCS; 2018-01-06)
PROC: 5A1D70Z Performance of Urinary Filtration, Intermittent, Less than 6 Hours Per Day (ICD-10-PCS; 2018-01-08)
PROC: 5A1D70Z Performance of Urinary Filtration, Intermittent, Less than 6 Hours Per Day (ICD-10-PCS; 2018-01-11)
PROC: 5A1D70Z Performance of Urinary Filtration, Intermittent, Less than 6 Hours Per Day (ICD-10-PCS; 2018-01-13)
PROC: 5A1D70Z Performance of Urinary Filtration, Intermittent, Less than 6 Hours Per Day (ICD-10-PCS; 2018-01-15)
PROC: 5A1D70Z Performance of Urinary Filtration, Intermittent, Less than 6 Hours Per Day (ICD-10-PCS; 2018-01-18)
PROC: 5A1D70Z Performance of Urinary Filtration, Intermittent, Less than 6 Hours Per Day (ICD-10-PCS; 2018-01-22)
DX: I13.2 Hypertensive heart and chronic kidney disease with heart failure and with stage 5 chronic kidney disease, or end stage renal disease (principal); N18.6 End stage renal disease; E44.0 Moderate protein-calorie malnutrition; E87.1 Hypo-osmolality and hyponatremia; E83.39 Other disorders of phosphorus metabolism; I48.92 Unspecified atrial flutter; I48.91 Unspecified atrial fibrillation; I50.43 Acute on chronic combined systolic (congestive) and diastolic (congestive) heart failure; N25.81 Secondary hyperparathyroidism of renal origin; E87.5 Hyperkalemia; D63.1 Anemia in chronic kidney disease; G89.4 Chronic pain syndrome; E78.00 Pure hypercholesterolemia, unspecified; I25.10 Atherosclerotic heart disease of native coronary artery without angina pectoris; E55.9 Vitamin D deficiency, unspecified; I08.0 Rheumatic disorders of both mitral and aortic valves; G47.00 Insomnia, unspecified; M25.569 Pain in unspecified knee; I70.0 Atherosclerosis of aorta; J98.4 Other disorders of lung; Z82.49 Family history of ischemic heart disease and other diseases of the circulatory system; Z95.0 Presence of cardiac pacemaker; Z99.2 Dependence on renal dialysis; Z88.0 Allergy status to penicillin; Z68.28 Body mass index [BMI] 28.0-28.9, adult; Z95.828 Presence of other vascular implants and grafts
CPT/HCPCS: 36415; 71045; 76775; 80048; 80053; 80074; 82306; 83970; 84100; 84132; 84550; 85025; 87081; 90935; 93306; 94640; 96365; 96375; J0610; J0885; J1642; J1815; J2405

== ENCOUNTER 2018-07-11 22:24 | Emergency (ER) | payer MEDICAID, OTHER ==
[~2018-07-11] VITALS: Ht 188 cm; Wt 90.7 kg
[~2018-07-11 22:24] MED LIST: ACE3T PO; CARV25TA PO; CINA30TA2 PO; CLOP75TA28 PO; DIAZ-104 PO; DOXA2TAB PO; MORP15TA PO; PRAV20TA3 PO; SEVE800T PO
[2018-07-12] MEDS ORDERED: HYDROcodone-ACET 7.5/325MG TAB PO ONE (01:00)
[2018-07-12 01:32] VITALS: BP 158/75
== END 2018-07-12 01:50 | disposition home or self-care (01) ==
LOC: ER 22:24 → EDBD 22:24 → ER 07-12 01:45
DX: S92.415A Nondisplaced fracture of proximal phalanx of left great toe, initial encounter for closed fracture (principal); S80.212A Abrasion, left knee, initial encounter; S80.211A Abrasion, right knee, initial encounter; I25.10 Atherosclerotic heart disease of native coronary artery without angina pectoris; I12.0 Hypertensive chronic kidney disease with stage 5 chronic kidney disease or end stage renal disease; N18.6 End stage renal disease; Z99.2 Dependence on renal dialysis; Z88.0 Allergy status to penicillin; Z79.899 Other long term (current) drug therapy; Z79.01 Long term (current) use of anticoagulants; W05.0XXA Fall from non-moving wheelchair, initial encounter; Y93.89 Activity, other specified; Y99.8 Other external cause status; Y92.89 Other specified places as the place of occurrence of the external cause
CPT/HCPCS: 73090; 73562; 73620; 73630